=== PATIENT | female | born 1955 | race Two or more races ===

== ENCOUNTER 2024-09-30 21:28 | Emergency (ER) | payer MEDICAID, OTHER ==
[~2024-09-30] VITALS: Ht 144.8 cm; Wt 61.2 kg
--- NOTE | 2024-09-30 21:55 | ECG ---
[facility] Test Date: 2024-09-30 Test Time: 21:42:46 Pat Name: ALEKS SEGAL Department: ER Room: Gender: F [employer]ber [employer] Tender: MARBELLA : 1955 Requested By: SHREYA VICTORIA Order Number: [id number] Reading MD: Miki Hoang Measurements Intervals [place] Rate: 66 P: -21 VA: 258 QRS: 32 QRSD: 87 T: 40 QT: 419 QTc: 439 Interpretive Statements Sinus rhythm Prolonged VA interval Electronically Signed On 10-02-2024 8:26:34 PST by Miki Hoang Please click the below link to view image of tracing.
--- NOTE | 2024-09-30 22:11 | ED.PDOC ---
History of Present Illness HPI Comments 68-year-old female brought in by family for elevated blood pressure. Patient states around 1930 she noted that her blood pressure was elevated despite taking her regular dose of losartan today. This was associated with chest pain and shortness a breath. Patient took her own omeprazole, and 30 minutes later her chest pain and shortness a breath resolved, however she states her blood pressure was persistently elevated, which prompted her to come to the ER. On arrival, she denies any chest pain or shortness a breath, however states she feels shaky and has nausea. She denies any headache, dizziness, vision changes or focal weakness. Chief Complaint: High Blood Pressure Time Seen by MD: 21:40 Reviewed Notes: Nurses Notes, Medications Allergies: Coded Allergies: NO KNOWN ALLERGIES (Unverified , 09/30/24) Information Source: Patient Mode of Arrival: Ambulatory Past Medical History PAST MEDICAL HISTORY: GERD, HTN Surgical History: Cholecystectomy, Hysterectomy AIR GRINDER History: No Pertinent AIR GRINDER History Family History Family History: Family hx of HTN Social History Smoker: Non-Smoker Alcohol: Denies ETOH Use Drugs: Denies Drug Use Lives In: Home All Other Systems: Reviewed and Negative (Comprehensive systems review obtained and negative except for what is stated in the HPI.) Physical Exam General Appearance: Mild Distress HEENT: PERRL/EOMI Neck: Full Range of Motion, Normal Inspection, Supple Respiratory: Lungs Clear, No Accessory Muscle Use, No Respiratory Distress, Normal Breath Sounds Cardiovascular: No Edema, No JVD, Regular Rate/Rhythm Breast Exam: Deferred Gastrointestinal: Non Tender, Soft Genitalia: Deferred Pelvic: Deferred Rectal: Deferred Extremities: Normal inspection, Normal range of motion, Non-tender, No pedal edema Neurologic: Alert, No Motor Deficits, Normal Affect, No Sensory Deficits, Other (Appears anxious and mildly tremulous) Cerebellar Function: NOT DONE Reflexes: NOT DONE Skin: Dry, Normal Color, Warm Lymphatic: NOT DONE Was a procedure done? Was a procedure done?: No EKG EKG : Comments Sinus rhythm, rate 66, SC prolonged at 258, normal QRS and QTC intervals, normal axis, normal QRS complex, no ST/T changes. Differential Dx Considerations may include: Uncomplicated accelerated hypertension, hypertensive urgency/emergency, mi, CHF, renal insufficiency/failure, among others X-Ray, Labs, Meds, VS Vital Signs Date Time Temp Pulse Resp B/P (MAP) Pulse Ox O2 Delivery O2 Flow Rate FiO2 09/30/24 23:17 88 136/91 09/30/24 23:12 88 17 136/91 (106) 99 09/30/24 22:33 178/86 09/30/24 22:24 70 16 98 Room Air* 0 21 09/30/24 22:24 98.0 70 16 178/86 (116) 98 98.0 09/30/24 21:51 66 09/30/24 21:37 97.4 70 18 173/79 (110) 97 Lab Test 09/30/24 22:55 09/30/24 22:05 Range/Units Troponin I High Sensitivity Pending < 3 L </=34 ng/L White Blood Count 8.9 4.4-10.8 10^3/uL Red Blood Count 4.42 4.0-5.20 10^6/uL Hemoglobin 13.4 12.2-16.2 g/dL Hematocrit 39.0 36.0-46.0 % Mean Corpuscular Volume 88.4 80.0-100.0 fL Mean Corpuscular Hemoglobin 30.4 28.0-32.0 pg Mean Corpuscular Hemoglobin Concent 34.4 32.0-36.0 g/dL Red Cell Distribution Width 14.6 H 11.8-14.3 % Platelet Count 255 140-450 10^3/uL Mean Platelet Volume 8.5 6.9-10.8 fL Neutrophils (%) (Auto) 68.4 37.0-80.0 % Lymphocytes (%) (Auto) 18.9 10.0-50.0 % Monocytes (%) (Auto) 7.6 0.0-12.0 % Eosinophils (%) (Auto) 4.5 0.0-7.0 % Basophils (%) (Auto) 0.6 0.0-2.0 % Neutrophils # (Auto) 6.1 1.6-8.6 10 ^3/uL Lymphocytes # (Auto) 1.7 0.4-5.4 10 ^3/uL Monocytes # (Auto) 0.7 0-1.3 10 ^3/uL Eosinophils # (Auto) 0.4 0-0.8 10 ^3/uL Basophils # (Auto) 0.1 0-0.2 10 ^3/uL Nucleated Red Blood Cells 0.1 % Sodium Level 141 136-145 mmol/L Potassium Level 4.0 3.5-5.1 mmol/L Chloride Level 106 98-107 mmol/L Carbon Dioxide Level 26 20-31 mmol/L Anion Gap 9 5-15 Blood Urea Nitrogen 15 9-23 mg/dL Creatinine 0.95 0.550-1.02 mg/dL Glomerular Filtration Rate Calc 64 >90 mL/min BUN/Creatinine Ratio 15.8 10.0-20.0 Serum Glucose 118 H 74-106 mg/dL Calcium Level 10.2 8.7-10.4 mg/dL B-Type Natriuretic Peptide 16.29 0-100 pg/mL Current Medications Medications (Trade) Dose Ordered Sig/Silverio Route Start Time Stop Time Status Last Admin Hydralazine HCl (Apresoline Injection) 10 mg ONCE ONCE IV 09/30/24 22:00 09/30/24 22:01 DC 09/30/24 22:33 Ondansetron HCl (Zofran) 4 mg ONCE ONCE IV 09/30/24 22:00 09/30/24 22:01 DC 09/30/24 22:31 PROCEDURE(s): CXRP - CHEST PORTABLE REASON: high bp ORDER NUMBER(s): [id number], ACCESSION NUMBER(s): [id number] CHEST RADIOGRAPH Indication: high bp Technique: Single frontal view of the chest was obtained Comparison: None FINDINGS: Lines and Tubes: None Lungs: Clear Pleura: No effusion. No pneumothorax. Cardiomediastinal contours: Unremarkable Bones: Unremarkable IMPRESSION: 1. Clear lungs. X-Ray, Labs, Meds, VS Comment 68-year-old female with a history of hypertension and GERD presenting with transient chest pain and shortness a breath, then persistent elevated blood pressure despite taking her home blood pressure medication. Vitals remarkable for temperature 97.4, BP 173/79 Exam remarkable for anxious appearance and mild tremulousness Rhythm strip independently interpreted by me sinus rhythm, rate 66, no ectopy. EKG sinus rhythm, no ST/T changes Chest x-ray unremarkable CBC, basic metabolic panel, BNP and troponin unremarkable for any abnormality of acute significance UA pending Patient received the following in the ED: Hydralazine 10 mg IV, Zofran 4 mg IV On re-evaluation after hydralazine, blood pressure was 136/91, other vitals were stable, and patient states her symptoms have resolved. Hospitalization was considered, however the patient had rapid improvement of her symptoms with treatment in the ED, workup is essentially unremarkable, and patient stated she feels fine and would like to be discharged home. She states she does not want to be admitted. I no longer feel hospitalization is necessary. Patient appears stable for outpatient follow-up with her primary physician. Patient was advised regarding workup findings, my impression, treatment plan and follow-up recommendations. She expressed understanding and agreed. She was advised to continue current medications as directed and follow-up with her primary physician within the next 2 days. Patient also advised to return to the ER for persistent or worsening symptoms. Time of 1ST Reevaluation: 22:45 Reevaluation 1ST: Unchanged Time of 2ND Reevaluation: 23:19 Reevaluation 2ND: Improved Patient Education/Counseling: Diagnosis, Treatment, Need For Follow Up Family Education/Counseling: No Family Present Departure 1 Departure Time of Disposition: 23:19 Impression: Primary Impression: Hypertensive urgency Disposition: 01 HOME / SELF CARE / HOMELESS Condition: Stable Additional Instructions: Your blood tests, EKG and chest x-ray were unremarkable. Your blood pressure has come down. Follow-up with your primary doctor in 1-2 days for re-evaluation and possible medication adjustment. Return to ER for persistent or worsening symptoms. Continue current medications as directed. Discharged With: Relative Critical Care Note Critical Care Time?: No Stability Stability form required: No Heart Score Heart Score: Heart Score Response (Comments) Value History Slightly Suspicious 0 EKG Normal 0 Age >65 2 Risk Factors 1 or 2 risk factors 1 Troponin Normal limit 0 Total 3 SHREYA TREADWELL MD Sep 30, 2024 22:11
[2024-09-30 22:24] VITALS: PULSE 70; RESP 16; TEMP 98; O2SAT 98
--- NOTE | 2024-09-30 22:26 | DVH ---
CHEST RADIOGRAPH Indication: high bp Technique: Single frontal view of the chest was obtained Comparison: None FINDINGS: Lines and Tubes: None Lungs: Clear Pleura: No effusion. No pneumothorax. Cardiomediastinal contours: Unremarkable Bones: Unremarkable IMPRESSION: 1. Clear lungs.
[2024-09-30] MEDS: ONDANSETRON HCL 4 MG/2 ML VIAL IV ONE (22:31)
[2024-09-30] MEDS: hydrALAZINE HCL 20 MG/ML VL IV ONE (22:33)
[2024-09-30 22:34] LABS: Basophils # (auto) 0.1 10 ^3/uL (0-0.2); Basophils % (auto) 0.6 % (0.0-2.0); Eosinophils # (auto) 0.4 10 ^3/uL (0-0.8); Eosinophils % (auto) 4.5 % (0.0-7.0); Hemoglobin 13.4 g/dL (12.2-16.2); Lymphocytes # (auto) 1.7 10 ^3/uL (0.4-5.4); Lymphocytes % (auto) 18.9 % (10.0-50.0); Mean Corpuscular Hemoglobin 30.4 pg (28.0-32.0); Mean Corpuscular Hgb Conc. 34.4 g/dL (32.0-36.0); Mean Corpuscular Volume 88.4 fL (80.0-100.0); Monocytes # (auto) 0.7 10 ^3/uL (0-1.3); Monocytes % (auto) 7.6 % (0.0-12.0); Neutrophils # (auto) 6.1 10 ^3/uL (1.6-8.6); Neutrophils % (auto) 68.4 % (37.0-80.0); Nucleated Red Blood Cells % 0.1 %; Platelet Count (auto) 255 10^3/uL (140-450); Red Blood Cells 4.42 10^6/uL (4.0-5.20); Red Cell Distribution Width 14.6 % (11.8-14.3); White Blood Cell 8.9 10^3/uL (4.4-10.8)
[2024-09-30 22:35] LABS: Chloride 106 mmol/L (98-107); Sodium 141 mmol/L (136-145)
[2024-09-30 22:36] LABS: Anion Gap 9 (5-15); Calcium 10.2 mg/dL (8.7-10.4); Carbon Dioxide 26 mmol/L (20-31)
[2024-09-30 22:41] LABS: BUN/Creatinine Ratio 15.8 (10.0-20.0); Blood Urea Nitrogen 15 mg/dL (9-23); Glucose 118 mg/dL (74-106)
[2024-09-30 23:12] VITALS: BP 136/91; PULSE 88; RESP 17; O2SAT 99
[2024-09-30] MEDS: LABETALOL HCL 20 MG/4 ML VL IV ONE (23:17)
== END 2024-09-30 23:30 | disposition home or self-care (01) ==
LOC: ER 21:28
DX: I16.0 Hypertensive urgency (principal); K21.9 Gastro-esophageal reflux disease without esophagitis; Z90.49 Acquired absence of other specified parts of digestive tract; Z90.710 Acquired absence of both cervix and uterus
CPT/HCPCS: 36415; 71045; 80048; 83880; 84484; 85025; 93005; 96374; 96375; 99285; J0360; J2405